=== PATIENT | male | born 1955 | race Caucasian/White ===

== ENCOUNTER → 2022-06-19 15:47 | Outpatient (CLI) | payer BC, SELFPAY ==
[2022-06-19 20:09] LABS: TSH w/ Reflex to FT4 1.67 uIU/mL (0.47-4.68)
== END ==
PROVIDERS: PCP Family Medicine; Referring Provider Internal Medicine Cardiovascular Disease; Visit Provider Internal Medicine Cardiovascular Disease
DX: I48.11 Longstanding persistent atrial fibrillation (principal)
CPT/HCPCS: 36415; 84443

== ENCOUNTER → 2022-09-01 12:31 | Outpatient (CLI) | payer BC, SELFPAY ==
--- NOTE | 2022-09-01 13:03 | DI.ECHO.S_ITS ---
[place] [facility]---------+ [facility] +---------+ : : [address] : : [address] : : : : [id number] : : : : Phone: [phone]---------+ Echocardiogram Report + + :Name: GAGE BROTHERS Study Date: 09/01/2022 Height: 74 in : :[facility] ReadingLocation: Weight: 320 lb : : Gender: Male BSA: 2.7 m2 : :: 1955 Age: 67 yrs BP: 121/79 mmHg: :Reason For Study: DISORDERS OF ARTERIES AND ARTERIOLES : :Ordering Physician: TANIA, : :KIM Performed By: Avril Bolton : :Referring: KIM COPELAND : + + Interpretation Summary 1) Normal left ventricular thickness, size, and systolic function (EF 55-60%). 2) Normal right ventricular size and function. 3) No significant valvular abnormalities. 4) No prior Echo available for comparison. Procedure: A two-dimensional transthoracic echocardiogram with color flow and Doppler was performed. The study quality was technically difficult. There is no prior echocardiogram noted for this patient. The patient was in sinus rhythm with heart rates between 80-97 bpm during the exam. Left Ventricle: The left ventricle is normal in size and wall thickness. Proximal septal thickening is noted. The left ventricular ejection fraction is grossly normal. The ejection fraction is estimated to be 55-60%. There are no obvious focal wall motion abnormalities noted but poor endocardial definition reduces the sensitivity for the detection of such. Diastolic function could not be accurately assessed due to atrial fibrillation. Right Ventricle: The right ventricle is grossly normal size. The right ventricular systolic function is normal. Atria: The left atrial size is normal. Right atrial size is normal. There is no Doppler evidence for an interatrial shunt . Mitral Valve: The mitral valve is grossly normal. There is trace mitral regurgitation. Aortic Valve: The aortic valve is trileaflet. The aortic valve opens well. There is no aortic valve stenosis. No aortic regurgitation is present. Tricuspid Valve: The tricuspid valve is normal in structure and function. There is mild tricuspid regurgitation. Right ventricular systolic pressure is estimated to be 27 mmHg plus the clinically estimated CVP which cannot be estimated on this exam. Pulmonic Valve: The pulmonic valve leaflets are thin and pliable; valve motion is normal. There is mild pulmonic regurgitation. Great Vessels: The aortic root is borderline dilated. The dimensions of the ascending aorta are normal. The inferior vena cava was not visualized. Pericardium/ Pleura There is no pericardial effusion. There is no pleural effusion. MMode/2D Measurements & Calculations LVIDd: 4.9 cm LVOT diam: 2.2 cm LVIDs: 2.9 cm Ao root diam: 4.0 cm FS: 40.2 % asc Aorta Diam: 3.6 cm EPSS: 0.73 cm Ao Arch Diam (Prox Trans): 3.6 cm IVSd: 1.1 cm LVPWd: 0.81 cm LV prieto. diameter/BSA (cm/m^2): 1.8 LV sys. diameter/BSA (cm/m^2): 1.1 LA A2 area: 18.2 cm2 RA long axis: 5.9 cm LA A4 area: 15.6 cm2 RA area: 21.0 cm2 LA length (vol): 5.1 cm RA vol: 63.8 ml LA vol: 47.2 ml RA : 24.0 ml/m2 LA vol index: 17.8 ml/m2 TAPSE: 1.8 cm Doppler Measurements & Calculations Ao V2 max: 95.2 cm/sec LVOT Max Prem: 76.4 cm/sec Ao V2 mean: 69.0 cm/sec LV V1 max P.3 mmHg Ao max P.6 mmHg LV V1 VTI: 15.3 cm Ao mean P.1 mmHg ALLEN(I,D): 3.2 cm2 Ao V2 VTI: 18.9 cm ALLEN(V,D): 3.2 cm2 sev ratio: 0.81 ALLEN indexed to BSA (cm^2/m^2): 1.2 MV E max prem: 71.2 cm/sec TR max prem: 259.8 cm/sec MV A max prem: 1.1 cm/sec TR max P.0 mmHg MV E/A: 61.9 PA V2 max: 69.2 cm/sec Med Peak E' Prem: 8.9 cm/sec PA V2 mean: 51.8 cm/sec E/E' med: 8.0 PA mean P.2 mmHg Lat Peak E' Prem: 9.0 cm/sec PA pr(Accel): 39.6 mmHg E/E' lat: 7.9 E/e' average: 8.0 MV dec time: 0.16 sec SV(LVOT): 60.4 ml Reading Physician:02:45 PM
== END ==
PROVIDERS: PCP Family Medicine; Referring Provider Internal Medicine Cardiovascular Disease; Visit Provider Internal Medicine Cardiovascular Disease
DX: I07.1 Rheumatic tricuspid insufficiency (principal); I37.1 Nonrheumatic pulmonary valve insufficiency; I77.89 Other specified disorders of arteries and arterioles
CPT/HCPCS: 93306